=== PATIENT | male | born 1985 | race Caucasian/White ===

== ENCOUNTER 2016-04-12 09:55 | Emergency (ER) | payer OTHER ==
[2016-04-12 10:15] VITALS: BP 123/85
[2016-04-12] MEDS ORDERED: TORADOL IM ONE (10:43)
[2016-04-12] MEDS ORDERED: DECADRON IM ONE (10:43)
[2016-04-12] MEDS ORDERED: NORFLEX IM ONE (10:43)
--- NOTE | 2016-04-12 10:46 | PROVIDER DOCUMENTATION ---
HPI-Musculoskeletal Pain/Inj <Reyna JorgeChloe - Last Filed: 04/12/16 10:45> - GENERAL Source: patient - HX OF PRESENT ILLNESS-MUSKULOSKELTAL Quality of Pain: reports: cramping Severity in ED: mild, moderate Onset/Duration: unsure, this morning Timing: still present, constant Modifying Factors: worse with: movement Any recent injury?: No Locality of Occurance: Home Similar Symptoms Previously?: No Recently seen or treated by another doctor?: No - UPPER EXTREMITY PAIN/INJURY Extremities Pain Location: shoulder: right Context / Method of Injury: reports: unknown Associated Symptoms: reports: denies symptoms <Uziel Ulloa - Last Filed: 04/12/16 10:55> - GENERAL Chief Complaint: Shoulder Pain Stated Complaint: SHOULDER PAIN Time Seen by Provider: 04/12/16 10:39 - HX OF PRESENT ILLNESS-MUSKULOSKELTAL Nature of Presenting Problem: patient is a 30 y/o M that presents to the ER with right shoulder pain upon awakening.denies injury.history of rotator cuff repair to same shoulder, [place]o is [place]and doesn't plan to f/u with him due to moving here. (Uziel Ulloa) Review of Systems - Adult - REVIEW OF SYSTEMS - ADULT Constitutional: reports: no symptoms reported Eyes: reports: no symptoms reported Ears, Nose, Mouth & Throat: reports: no symptoms reported Cardiovascular: reports: no symptoms reported Respiratory: reports: no symptoms reported Gastrointestinal: reports: no symptoms reported Genitourinary: reports: no symptoms reported Musculoskeletal: reports: see HPI Integumentary: reports: no symptoms reported Neurological: reports: no symptoms reported Psychiatric: reports: no symptoms reported Endocrine: reports: no symptoms reported Hematologic/Lymphatic: reports: no symptoms reported Allergic/Immunologic: reports: no symptoms reported All Other Systems: Reviewed and Negative <Uziel Ulloa - Last Filed: 04/12/16 10:55> Past History - Adult - PAST MEDICAL HISTORY-ADULT Review of Records: reports: Old Records Reviewed, Nursing Assessment Review, Medications Reviewed - PRIOR SURGERIES/PROCEDURES Surgical/Procedure History: reports: orthopedic (extremity) - IMMUNIZATION STATUS Childhood Immunizations: See Nurse Assessment Flu Vaccine: See Nurse Assessment - FAMILY HISTORY Family History: reviewed, not pertinent - SOCIAL HISTORY Smoking: non-smoker Living Situation: family <Uziel Ulloa - Last Filed: 04/12/16 10:55> Physical Exam-Injury Related - Physical Exam-Injury Related Initial Vital Signs Reviewed: Yes General Appearance: alert, no apparent distress Eyes: PERRL/EOMI, pink conjunctivae Head, Ears, Nose, Mouth & Throat: normocephalic/atraumatic, moist mucous membranes, normal ENT inspection Neck: non-tender, full range of motion, normal inspection Respiratory: chest non-tender, lungs clear, normal breath sounds, no respiratory distress, no accessory muscle use Cardiovascular: normal peripheral pulses, regular rate, rhythm, no murmur Back Exam: no CVA tenderness, no vertebral tenderness Extremity: no calf tenderness, normal capillary refill, pelvis stable, tenderness (right shoulder), other (unable to lift arm about head due to pain ( right side) +PMS) Integumentary: normal color, warm/dry Neurologic: grossly normal, no motor/sensory deficits Psych/Mental Status: normal mood/affect, normal thought content, normal thought process, oriented x 3 <Uziel Ulloa - Last Filed: 04/12/16 10:55> Progress <Reyna Jorge - Last Filed: 04/12/16 10:45> <Uziel Ulloa - Last Filed: 04/12/16 10:55> - PLAN OF CARE/RESULTS Progress/Plan/Lab Results: Vital Signs Temp Pulse Resp BP Pulse Ox 04/12/16 10:10 98.5 F 72 18 123/85 99 Cyclobenzaprine [Flexeril] 10 mg PO TID #20 tablet 04/12/16 Famotidine [Pepcid] 20 mg PO DAILY #20 tablet 04/12/16 Ketorolac [Toradol] 10 mg PO Q6H PRN PRN #20 tablet 04/12/16 Orders Category Date Time Status Dexamethasone [Decadron] Med 04/12/16 10:43 Discontinued 4 mg IM NOW ONE Ketorolac [Toradol] Med 04/12/16 10:43 Discontinued 30 mg IM NOW ONE Orphenadrine [Norflex] Med 04/12/16 10:43 Discontinued 60 mg IM NOW ONE pt will be d/c home with rx, f/u with ortho(dr lam on) pt was clinically stable and understood results/instructions. (Uziel Ulloa) Departure - Departure Time of Disposition Order: 10:45 Certified Medical Emergency: Emergent <Reyna Jorge - Last Filed: 04/12/16 10:45> <Uziel Ulloa - Last Filed: 04/12/16 10:55> - Departure DIAGNOSIS: Shoulder pain, right Qualifiers: Chronicity: acute Qualified Code(s): M25.511 - Pain in right shoulder Disposition: HOME 01 Condition: Stable Additional Instructions: Follow up with [facility] ED Follow Up Instructions: You have been treated by a care provider in the Emergency Department. These instructions are being provided to you so you can have an understanding of how to care for yourself upon discharge. Upon discharge from the Emergency Department, you are responsible for making arrangements for follow-up care by a physician of your choice. Take all prescribed medications as directed. Return to the Emergency Department immediately for any new or worsening symptoms. You may call the Physician Referral phone number at [phone] to obtain a list of Physicians who are taking new patients. Prescriptions: Cyclobenzaprine [Flexeril] 10 mg PO TID #20 tablet Famotidine [Pepcid] 20 mg PO DAILY #20 tablet Ketorolac [Toradol] 10 mg PO Q6H PRN PRN #20 tablet PRN Reason: Pain Referrals: None,PCP [Primary Care Provider] - Erickson Vela MD [STAFF PHYSICIAN] - Attestation - Scribe Verification/Attestation Scribe:: Uziel Ulloa Acting as Scribe for:: Reyna Jorge Scribe documention review:: This chart was documented by a scribe and accurately reflects the service the provider performed and the decisions made by the provider. - Physician/ Mid-level Attestation Patient care was provided by Mid-level provider (LAST PICKER/PA):: Yes Mid-level provider:: Reyna Jorge Mid-level documentation review:: The Mid-level provider documentation, treatment plan and medical decision making was reviewed by the physician who agrees with all treatment and medical decision making by the P. <Uziel Ulloa - Last Filed: 04/12/16 10:55> Physician Attestation
== END 2016-04-12 11:27 | disposition home or self-care (01) ==
LOC: P.ED 09:55
DX: M25.511 Pain in right shoulder (principal)
CPT/HCPCS: 96372; J1100; J1885; J2360

== ENCOUNTER 2016-06-10 19:24 | Emergency (ER) | payer OTHER ==
[2016-06-10 19:30] VITALS: BP 140/79
[2016-06-10] MEDS ORDERED: NORCO-10 PO ONE (19:39)
[2016-06-10] MEDS ORDERED: ZOFRAN ODT PO ONE (19:39)
[2016-06-10] MEDS ORDERED: XYLOCAINE-MPF 1% INJ ONE (19:39)
--- NOTE | 2016-06-10 19:39 | PROVIDER DOCUMENTATION ---
HPI-Rash/Wound/ReCheck - General Source: patient - History of Present Illness-Dermatology Location: reports: face Quality: reports: painful Severity: reports: mild Onset/Duration: reports: 1 week ago Timing: reports: still present Locality of Occurance: Home Similar Symptoms Previously?: No Recently seen or treated by another doctor?: No <Hodan Bahena - Last Filed: 06/10/16 19:36> <Jameson Spence - Last Filed: 06/10/16 20:24> - General Chief Complaint: Insect Bite/Sting Stated Complaint: BUG BITE SX Time Seen by Provider: 06/10/16 19:34 Allergies/Adverse Reactions: Allergies Allergy/AdvReac Type Severity Reaction Status Date / Time No Known Allergies Allergy Verified 04/12/16 11:26 Home Medications: Home Medication List Medication Instructions Recorded Confirmed Last Taken Type Clindamycin [Cleocin] 150 mg PO Q6HR #30 capsule 06/10/16 Unknown Rx Ketorolac [Toradol] 10 mg PO Q6H PRN PRN #10 tablet 06/10/16 Unknown Rx Mupirocin Ointment [Bactroban 1 applicatn TOP TID #1 tube 06/10/16 Unknown Rx Ointment] - History of Present Illness-Dermatology Nature of Presenting Problem: 30 year old M presents to the ED with a cc of a possible ingrown hair to right lower chin. PT states that it began about 1 week ago and has gotten worse over the last 3 days. PT denies fever. (Hodan Bahena) Review of Systems - Adult - REVIEW OF SYSTEMS - ADULT Constitutional: denies: chills, fever Eyes: reports: no symptoms reported Ears, Nose, Mouth & Throat: denies: mouth/dental pain, mouth swelling Cardiovascular: reports: no symptoms reported Respiratory: reports: no symptoms reported Gastrointestinal: reports: no symptoms reported Genitourinary: reports: no symptoms reported Musculoskeletal: denies: muscle aches, muscle weakness Integumentary: reports: skin sores/ulcer. denies: skin thickening Neurological: reports: no symptoms reported Psychiatric: reports: no symptoms reported Endocrine: reports: no symptoms reported Hematologic/Lymphatic: reports: no symptoms reported Allergic/Immunologic: reports: no symptoms reported All Other Systems: Reviewed and Negative <Hodan Bahena - Last Filed: 06/10/16 19:36> Past History - Adult - PAST MEDICAL HISTORY-ADULT Review of Records: reports: Nursing Assessment Review, Medications Reviewed Major Childhood Illnesses: reports: denies history - PRIOR SURGERIES/PROCEDURES Surgical/Procedure History: reports: orthopedic (extremity) - IMMUNIZATION STATUS Childhood Immunizations: See Nurse Assessment Flu Vaccine: See Nurse Assessment - FAMILY HISTORY Family History: reviewed, not pertinent - SOCIAL HISTORY Smoking: non-smoker Substance Use: none/never Alcohol Use Frequency: never <Hodan Bahena - Last Filed: 06/10/16 19:36> Physical Exam-General - PHYSICAL EXAM-ADULT Initial Vital Signs Reviewed: Yes - CONSTITUTIONAL General Appearance: appears well, alert, no apparent distress - RESPIRATORY Respiratory: no respiratory distress - CARDIOVASCULAR Cardiovascular: regular rate, rhythm - SKIN Integumentary: other (indurated erythematous area to right lower chin, probable abscess) - PSYCHIATRIC Psych/Mental Status: normal mood/affect, normal thought content, normal thought process, oriented x 3 <Hodan Bahena - Last Filed: 06/10/16 19:36> Progress <Hodan Bahena - Last Filed: 06/10/16 19:36> <Jameson Spence - Last Filed: 06/10/16 20:24> - PLAN OF CARE/RESULTS Progress/Plan/Lab Results: Orders Category Date Time Status I&D [I and D Set up] DIRECTED Care 06/10/16 19:39 Active Hydrocodone/APAP 10 mg/325 mg [[place]-10] Med 06/10/16 19:39 Discontinued 1 each PO NOW ONE Lidocaine 1% Pf [Xylocaine-Mpf 1%] Med 06/10/16 19:39 Discontinued 20 ml INJ NOW ONE Ondansetron Odt [Zofran Odt] Med 06/10/16 19:39 Discontinued 4 mg PO NOW ONE Vital Signs Temp Pulse Resp BP Pulse Ox 06/10/16 19:26 98 F 67 18 140/79 100 No Known Allergies Allergy (Verified 04/12/16 11:26) No Home Medications 06/10/16 (Jameson Spence) Procedures - INCISION & DRAINAGE Site: chin Abscess Type: Simple Prepped with: Kit Utilized, Betadine, Sterile Drapes Applied Anesthetic: 1%, Lidocaine/Xylocaine Volume of Anesthetic (ml's): 6 Blade Size: 11 Packing placed?: No Sterile Dressing Applied?: Yes Drainage: Purulent, Small Amount Procedure Comment: no complications <Jameson Spence - Last Filed: 06/10/16 20:24> Departure <Lu Bahenaa - Last Filed: 06/10/16 19:36> - Departure Time of Disposition Order: 20:22 Certified Medical Emergency: Urgent <JordyJameson Tadeo - Last Filed: 06/10/16 20:24> - Departure DIAGNOSIS: Abscess Disposition: HOME 01 Condition: Good Additional Instructions: Take medication as prescribed. Keep area clean and dry. Follow up with your primary care provider. ED Follow Up Instructions: You have been treated by a care provider in the Emergency Department. These instructions are being provided to you so you can have an understanding of how to care for yourself upon discharge. Upon discharge from the Emergency Department, you are responsible for making arrangements for follow-up care by a physician of your choice. Take all prescribed medications as directed. Return to the Emergency Department immediately for any new or worsening symptoms. You may call the Physician Referral phone number at [phone] to obtain a list of Physicians who are taking new patients. Prescriptions: Mupirocin Ointment [Bactroban Ointment] 1 applicatn TOP TID #1 tube Clindamycin [Cleocin] 150 mg PO Q6HR #30 capsule Ketorolac [Toradol] 10 mg PO Q6H PRN PRN #10 tablet PRN Reason: Pain Attestation - Physician/ NAINA Attestation Patient care was provided by Advanced Practice Provider:: Yes Advanced Practice Provider:: Jameson Spence Advanced Practice Provider documentation review:: The Mid-level provider documentation, treatment plan and medical decision making was reviewed by the physician who agrees with all treatment and medical decision making by the MLP. <Jameson Spence - Last Filed: 06/10/16 20:24> Physician Attestation
== END 2016-06-10 20:30 | disposition home or self-care (01) ==
LOC: P.ED 19:24
DX: L02.01 Cutaneous abscess of face (principal); L98.9 Disorder of the skin and subcutaneous tissue, unspecified